=== PATIENT | male | born 1955 | race Caucasian/White ===

== ENCOUNTER → 2019-11-28 | Day surgery (SDC) | payer OTHER ==
[~2019-11-28] VITALS: Ht 177.8 cm; Wt 103.4 kg
[~2019-11-28] MED LIST: HYDR25T PO; LEXAPRO10 MG PO; LOPRESSOR50 M1 PO; PRINIVIL20 M1 PO; SIMVASTATIN20 MG PO; VITAMIN D310 MC1 GT
[2019-11-28 06:40] VITALS: BP 193/91
[2019-11-28 08:01] VITALS: BP 125/69
[2019-11-28 08:07] VITALS: BP 133/70
[2019-11-28 08:22] VITALS: BP 128/68
== END | disposition home or self-care (01) ==
LOC: SDC 11-23 08:45
DX: Z12.11 Encounter for screening for malignant neoplasm of colon (principal); D12.3 Benign neoplasm of transverse colon; I10 Essential (primary) hypertension; E11.9 Type 2 diabetes mellitus without complications; J43.9 Emphysema, unspecified; F32.9 Major depressive disorder, single episode, unspecified; E78.5 Hyperlipidemia, unspecified; F17.210 Nicotine dependence, cigarettes, uncomplicated; Z72.89 Other problems related to lifestyle; Z82.5 Family history of asthma and other chronic lower respiratory diseases